=== PATIENT | female | born 1985 ===

== ENCOUNTER 2016-12-20 12:32 | Emergency (ER) | payer OTHER ==
[2016-12-20] MEDS ORDERED: Sodium Chloride 0.9% 1,000 ML IV STA (13:08)
--- NOTE | 2016-12-20 13:10 | ED PDOC ---
ATTENTION PHYSICIANS Hyperglycemia/Hypoglycemia <Richard Ding - Last Filed: 12/20/16 13:52> Chief Complaint (Provider): Hyperglycemic History Per: Patient : The patient does not have any of the infectious symptoms listed except for those marked. Additional Complaint(s): 31 yo female, PMH of asthma and Type I DM, presents to ED with complaints of Hyperglycemia. Pt states she woke up this a.m. feeling weak and dizzy - states her blood sugar was over 600. Gave herself 18 units of Humalog. Currently FS: 272 Of note: Pt is on prednisone 60 mg PO for her asthma. <Sirena Davison - Last Filed: 12/20/16 15:36> Time Seen by Provider: 12/20/16 12:46 Chief Complaint (Nursing): High Blood Sugar Past Medical History Vital Signs: Last Vital Signs Temp 97 F L 12/20/16 12:38 Pulse 72 12/20/16 12:38 Resp 18 12/20/16 12:38 BP 136/72 12/20/16 12:38 Pulse Ox 100 12/20/16 13:10 <Richard Ding - Last Filed: 12/20/16 13:52> Reviewed: Nursing Documentation, Vital Signs Vital Signs: Last Vital Signs Temp 97 F L 12/20/16 12:38 Pulse 72 12/20/16 12:38 Resp 18 12/20/16 12:38 BP 136/72 12/20/16 12:38 Pulse Ox 100 12/20/16 12:38 - Medical History PMH: Anxiety, Asthma - Surgical History Surgical History: No Surg Hx - Family History Family History: States: Unknown Family Hx - Living Arrangements Living Arrangements: With Family - Social History Current smoker - smoking cessation education provided: No Alcohol: None Drugs: Denies - Immunization History Hx Tetanus Toxoid Vaccination: Yes Hx Influenza Vaccination: No Hx Pneumococcal Vaccination: No <Sirena Davison - Last Filed: 12/20/16 15:36> - Home Medications Home Medications: Ambulatory Orders Medication Instructions Recorded Albuterol 0.042% [Albuterol 0.042% 12/20/16 Inhal Di (1.25mg/3ml) UD] predniSONE [Prednisone] 40 mg PO DAILY #8 tab 12/20/16 - Allergies Allergies/Adverse Reactions: Allergies Allergy/AdvReac Type Severity Reaction Status Date / Time No Known Allergies Allergy Verified 12/20/16 12:37 Review of Systems ROS Statement: Except As Marked, All Systems Reviewed And Found Negative <Sirena Davison Last Filed: 12/20/16 15:36> Physical Exam - Reviewed Nursing Documentation Reviewed: Yes Vital Signs Reviewed: Yes - Physical Exam Appears: Positive for: Well, Non-toxic, No Acute Distress Head Exam: Positive for: ATRAUMATIC, NORMAL INSPECTION, NORMOCEPHALIC Skin: Positive for: Normal Color, Warm, DRY Eye Exam: Positive for: EOMI, Normal appearance, PERRL ENT: Positive for: Normal ENT Inspection Neck: Positive for: Normal, Painless ROM Cardiovascular/Chest: Positive for: Regular Rate, Rhythm Respiratory: Positive for: CNT, Normal Breath Sounds Gastrointestinal/Abdominal: Positive for: Normal Exam, Bowel Sounds, Soft Back: Positive for: Normal Inspection Extremity: Positive for: Normal ROM Neurologic/Psych: Positive for: Alert, Oriented <Sirena Davison Last Filed: 12/20/16 15:36> - Laboratory Results Result Diagrams: 12/20/16 13:50 12/20/16 14:30 - ECG O2 Sat by Pulse Oximetry: 100 <Sirena Davison Last Filed: 12/20/16 15:36> Medical Decision Making Medical Decision Makin:40 Discussed patient's case with neurologist and car hostler. Hospitalist agrees to admit patient to the ICU for CVA. Scribe Attestation: Documented by Magalie Hernandez, acting as a scribe for Richard Ding MD. Provider Scribe Attestation: All medical record entries made by the Scribe were at my direction and personally dictated by me. I have reviewed the chart and agree that the record accurately reflects my personal performance of the history, physical exam, medical decision making, and the department course for this patient. I have also personally directed, reviewed, and agree with the discharge instructions and disposition. <Richard Ding - Last Filed: 12/20/16 13:52> Medical Decision Making: Labs resulted and reviewed with Pt who demonstrated full understanding. Blood sugar 147 <Sirena Davison Last Filed: 12/20/16 15:36> Disposition <Richard Ding - Last Filed: 12/20/16 13:52> - Patient ED Disposition Is Patient to be Admitted: No - Disposition Disposition: Routine/Home Disposition Time: 15:36 - POA Present On Arrival: None <Sirena Davison - Last Filed: 12/20/16 15:36> - Clinical Impression Clinical Impression: Hyperglycemia, Medication adverse effect - Disposition Condition: STABLE Instructions: Diabetic Hyperglycemia (ED), Prednisolone (By mouth) Forms: [employer] (Nepali)
[2016-12-20 14:06] LABS: VENOUS BLOOD GAS PCO2 48 mmHg (40-60); VENOUS BLOOD PH 7.32 (7.32-7.43)
[2016-12-20 14:32] LABS: BASO % 0.2 % (0.0-2.0); EOS % 0.1 % (0.0-4.0); HEMATOCRIT 44.2 % (34.0-47.0); LYMPH # 1.1 K/uL (1.0-4.3); LYMPH % 11.2 % (20.0-40.0); MEAN CELL VOLUME 90.4 fl (81.0-99.0); MEAN CORPUSCULAR HEMOGLOBIN 30.1 pg (27.0-31.0); MEAN CORPUSCULAR HGB CONC 33.3 g/dL (33.0-37.0); MEAN PLATELET VOLUME 7.6 fl (7.2-11.7); MONO # 0.3 K/uL (0.0-0.8); MONO % 2.9 % (0.0-10.0); NEUT # 8.4 K/uL (1.8-7.0); NEUT % 85.6 % (50.0-75.0); NRBC % 0.1 % (0.0-0.0); WHITE BLOOD COUNT 9.8 K/uL (4.8-10.8)
[2016-12-20 15:04] LABS: ALB/GLOB RATIO 1.5 (1.0-2.1); ALKALINE PHOSPHATASE 59 U/L (38-126); ALT/SGPT 27 U/L (9-52); AST/SGOT 29 U/L (14-36); BILIRUBIN,TOTAL 0.7 mg/dl (0.2-1.3); BLOOD UREA NITROGEN 13 mg/dl (7-17); CALCIUM 9.6 mg/dL (8.4-10.2); CARBON DIOXIDE 24 mmol/L (22-30); CHLORIDE 105 mmol/L (98-107); GFR AFRICAN-AMERICAN > 60; GLUCOSE,RANDOM 147 mg/dL (65-105); POTASSIUM 4.6 MMOL/L (3.6-5.0); SODIUM 140 mmol/l (132-148); TOTAL PROTEIN 7.8 G/DL (6.3-8.2)
[2016-12-20 15:45] VITALS: BP 128/78; PULSE 78; RESP 19; TEMP 97.6; O2SAT 98
--- NOTE | 2016-12-21 08:27 | CARD ---
APPROVED REPORT EKG Measurement Heart [id number] <Conclusion> Normal sinus rhythm Normal ECG
== END 2016-12-20 15:45 | disposition home or self-care (01) ==
LOC: H.ER 12:32
DX: E11.65 Type 2 diabetes mellitus with hyperglycemia (principal); F41.9 Anxiety disorder, unspecified; J45.909 Unspecified asthma, uncomplicated

== ENCOUNTER 2017-05-20 02:17 | Emergency (ER) | payer OTHER ==
[2017-05-20 02:34] VITALS: BMI 20.9
[2017-05-20] MEDS ORDERED: Albuterol-Ipratrop 3 mg / 0.5 (3 ml) UD INH STA (02:40)
[2017-05-20] MEDS ORDERED: Albuterol-Ipratrop 3 mg / 0.5 (3 ml) UD ONE (02:41)
[2017-05-20 02:42] VITALS: BP 103/61; PULSE 99; RESP 18; TEMP 97.7; O2SAT 99
--- NOTE | 2017-05-20 03:40 | ED PDOC ---
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 Patient was at boyfriend's house and he has dogs. States she used her inhaler and two nebulizer treatment. Patient feels better in the ED. PMD: Dr. Perez (Non [facility]) Past Medical History Reviewed: Historical Data, Nursing Documentation, Vital Signs Vital Signs: Last Vital Signs Temp 97.7 F 05/20/17 02:35 Pulse 99 H 05/20/17 02:35 Resp 18 05/20/17 02:35 BP 103/61 05/20/17 02:35 Pulse Ox 99 05/20/17 03:47 - Medical History PMH: Anxiety, Asthma Other PMH: allergy to dogs and cats - Family History Family History: States: Unknown Family Hx - Immunization History Hx Tetanus Toxoid Vaccination: Yes Hx Influenza Vaccination: No Hx Pneumococcal Vaccination: No - Home Medications Home Medications: Ambulatory Orders Medication Instructions Recorded Albuterol 0.042% [Albuterol 0.042% 12/20/16 Inhal Di (1.25mg/3ml) UD] predniSONE [Prednisone] 40 mg PO DAILY #8 tab 12/20/16 - Allergies Allergies/Adverse Reactions: Allergies Allergy/AdvReac Type Severity Reaction Status Date / Time No Known Allergies Allergy Verified 05/20/17 02:34 Review of Systems ROS Statement: Except As Marked, All Systems Reviewed And Found Negative Respiratory: Positive for: Shortness of Breath, Wheezing Psych: Negative for: Suicidal ideation (homicidal ideations) Physical Exam - Reviewed Nursing Documentation Reviewed: Yes Vital Signs Reviewed: Yes - Physical Exam Appears: Positive for: Well (well appearing; speaking full sentences ), Non- toxic, No Acute Distress Head Exam: Positive for: ATRAUMATIC, NORMAL INSPECTION, NORMOCEPHALIC Skin: Positive for: Normal Color, Warm, Dry Eye Exam: Positive for: EOMI, Normal appearance, PERRL ENT: Positive for: Normal ENT Inspection Neck: Positive for: Normal, Painless ROM, Supple. Negative for: Decreased ROM, Limited ROM Cardiovascular/Chest: Positive for: Regular Rate, Rhythm. Negative for: Murmur Respiratory: Positive for: Normal Breath Sounds, Wheezing (mild-scattered). Negative for: Respiratory Distress Gastrointestinal/Abdominal: Positive for: Normal Exam, Bowel Sounds, Soft. Negative for: Tenderness, Guarding, Rebound Back: Positive for: Normal Inspection. Negative for: L CVA Tenderness, R CVA Tenderness Extremity: Positive for: Normal ROM. Negative for: Tenderness, Pedal Edema, Deformity Neurologic/Psych: Positive for: Alert, Oriented (x3), Gait - ECG O2 Sat by Pulse Oximetry: 99 (RA) Pulse Ox Interpretation: Normal Medical Decision Making Medical Decision Making: Time: 02:40 A/P: Patient presents with asthma and exacerbation which is largely resolved. Patient will be given one Duoneb treatment and reevaluation afterwards. --Albuterol/ Ipratropium 3 ml --Peak Flow Pre/Post TX --Reevaluation 345 Patient feeling much better, no longer wheezing. Return precautions given. Patient well appearing, steady gait upon discharge. HR 79 Scribe Attestation: Documented by Sylwia Ward, acting as a scribe for Martín Wagner MD Provider Scribe Attestation: All medical record entries made by the Scribe were at my direction and personally dictated by me. I have reviewed the chart and agree that the record accurately reflects my personal performance of the history, physical exam, medical decision making, and the department course for this patient. I have also personally directed, reviewed, and agree with the discharge instructions and disposition. Disposition - Clinical Impression Clinical Impression: Asthma - Disposition Referrals: [facility] [Outside] Disposition: Routine/Home Disposition Time: 03:45 Condition: IMPROVED Instructions: Asthma in Adults Forms: [employer] (Mohawk)
== END 2017-05-20 04:10 | disposition home or self-care (01) ==
LOC: H.ER 02:17
DX: J45.901 Unspecified asthma with (acute) exacerbation (principal); F41.9 Anxiety disorder, unspecified